=== PATIENT | female | born 1960 | race Caucasian/White ===

== ENCOUNTER → 2016-07-31 | Outpatient (REF) ==
[~2016-07-31] MED LIST: BENADRYL25 M1 PO; FLEXERIL10 MG PO; FLONASE NASAL S16 GM NS; FLUCONAZOLE150 MG PO; NORCO 325 MG-51 TAB PO; SUDAFED30 MG PO
== END ==
LOC: ZLAB.WCH 11:00
DX: Z01.89 Encounter for other specified special examinations (principal)

== ENCOUNTER → 2016-08-27 | Outpatient (REF) | LOC: ZLAB.WCH 17:00 | DX: Z02.89 Encounter for other administrative examinations (principal) ==

== ENCOUNTER → 2017-04-06 | Outpatient (CLI) | payer BC, OTHER | LOC: MC.RAD 07:20 | DX: Z12.31 Encounter for screening mammogram for malignant neoplasm of breast (principal) ==

== ENCOUNTER → 2017-04-13 | Outpatient (REF) | LOC: ZLAB.WCH 14:23 | DX: Z01.89 Encounter for other specified special examinations (principal) ==

== ENCOUNTER → 2018-04-15 | Outpatient (CLI) | payer BC, OTHER | LOC: MC.RAD 09:16 | DX: Z12.31 Encounter for screening mammogram for malignant neoplasm of breast (principal) ==

== ENCOUNTER → 2019-03-11 | Outpatient (CLI) | payer BC, OTHER | LOC: MC.RAD 07:30 | DX: Z12.31 Encounter for screening mammogram for malignant neoplasm of breast (principal) ==